=== PATIENT | female | born 1935 | race American Indian/Alaskan Native ===

== ENCOUNTER 2018-06-01 14:46 | Inpatient (IN) | payer MEDICARE ==
--- NOTE | 2018-06-01 16:41 | Emergency Department Report ---
ED N/V/D HPI - General Chief complaint: Nausea/Vomiting/Diarrhea Stated complaint: VOMITING,DIARRHEA, RASH (PELVIC AREA) Time Seen by Provider: 06/01/18 16:20 Source: patient Mode of arrival: Ambulatory Limitations: No Limitations - History of Present Illness Initial comments: Patient is an 82-year-old female that presents to emergency room with complaints of nausea/vomiting/diarrhea and a rash on her buttock and vaginal area. Patient states that the nausea/vomiting and diarrhea are all improving, however 2 days ago a rash popped up on her vagina and buttock. Patient states the rash is painful at a 3 out of 10 and is a burning sensation. Patient states it is spreading from her left buttock to her vaginal region. Patient states she'll have any rash on her right side of her body. Patient states that her nausea/vomiting/diarrhea started 3 days ago and is improving. Patient denies fever and chills. Patient denies chest pain shortness of breath. Patient denies diaphoresis. Patient denies abdominal pain. Patient denies blood in vomitus and in stool. Patient states she has not been to hold anything down for approximately 2 - 3 days MD complaint: nausea, vomiting, diarrhea -: Sudden Description of Vomiting: watery Description of Diarrhea: water Associated Abdominal Pain: No Consistency: other (patient states symptoms of diarrhea, vomiting, nausea or improving) Improves with: rest Worsens with: eating Associated Symptoms: nausea/vomiting, rash. denies: myalgias, chest pain, cough , diaphoresis, fever/chills, headaches, loss of appetite, malaise, shortness of breath, syncope, weakness - Related Data Allergies Allergy/AdvReac Type Severity Reaction Status Date / Time codeine Allergy Unknown Verified 06/01/18 14:50 ED Review of Systems ROS: Stated complaint: VOMITING,DIARRHEA, RASH (PELVIC AREA) Other details as noted in HPI Constitutional: denies: chills, fever Eyes: denies: eye pain, eye discharge, vision change ENT: denies: ear pain, throat pain Respiratory: denies: cough, shortness of breath, wheezing Cardiovascular: denies: chest pain, palpitations Endocrine: no symptoms reported Gastrointestinal: nausea, vomiting, diarrhea. denies: abdominal pain Genitourinary: denies: urgency, dysuria, discharge Musculoskeletal: denies: back pain, joint swelling, arthralgia Skin: rash, lesions Neurological: denies: headache, weakness, paresthesias Psychiatric: denies: anxiety, depression Hematological/Lymphatic: denies: easy bleeding, easy bruising ED Past Medical Hx - Past Medical History Previous Medical History?: Yes Hx Hypertension: Yes Hx CVA: No Hx Heart Attack/AMI: No Hx Congestive Heart Failure: No Hx Diabetes: No Hx Deep Vein Thrombosis: No Additional medical history: hld - Surgical History Past Surgical History?: No - Family History Family history: no significant - Social History Smoking Status: Never Smoker Substance Use Type: None ED Physical Exam - General Limitations: No Limitations General appearance: alert, in no apparent distress - Head Head exam: Present: atraumatic, normocephalic - Eye Eye exam: Present: normal appearance - ENT ENT exam: Present: mucous membranes moist - Neck Neck exam: Present: normal inspection - Respiratory Respiratory exam: Present: normal lung sounds bilaterally. Absent: respiratory distress - Cardiovascular Cardiovascular Exam: Present: regular rate, normal rhythm. Absent: systolic murmur, diastolic murmur, rubs, gallop - GI/Abdominal GI/Abdominal exam: Present: soft, normal bowel sounds. Absent: distended, tenderness, guarding, rebound, rigid - Extremities Exam Extremities exam: Present: normal inspection - Back Exam Back exam: Present: normal inspection - Neurological Exam Neurological exam: Present: alert, oriented X3 - Psychiatric Psychiatric exam: Present: normal affect, normal mood - Skin Skin exam: Present: warm, dry, normal color, rash (vesicular rash on the left buttock extending down into her vaginal region. Intact vesicles as well as some areas of drying vesicular rash follows dermatome. nurse in room during exam. ) ED Course Vital Signs 06/01/18 06/01/18 06/01/18 14:50 16:05 16:11 Temperature 99.4 F Pulse Rate 91 H Respiratory 16 Rate Blood Pressure 136/65 149/69 O2 Sat by Pulse 96 99 96 Oximetry 06/01/18 06/01/18 06/01/18 16:12 16:21 16:23 Temperature 98.6 F Pulse Rate Respiratory 18 Rate Blood Pressure 151/64 O2 Sat by Pulse 97 99 Oximetry 06/01/18 06/01/18 06/01/18 16:30 16:41 16:51 Temperature Pulse Rate Respiratory Rate Blood Pressure 146/65 146/65 146/65 O2 Sat by Pulse 97 96 99 Oximetry 06/01/18 06/01/18 06/01/18 17:01 17:11 17:21 Temperature Pulse Rate Respiratory Rate Blood Pressure 135/91 135/91 144/85 O2 Sat by Pulse 95 98 97 Oximetry 06/01/18 06/01/18 06/01/18 17:25 17:31 17:35 Temperature Pulse Rate Respiratory Rate Blood Pressure 135/91 153/71 153/71 O2 Sat by Pulse 98 97 95 Oximetry 06/01/18 06/01/18 06/01/18 17:41 17:45 17:51 Temperature Pulse Rate Respiratory Rate Blood Pressure 153/71 158/68 158/68 O2 Sat by Pulse 98 98 99 Oximetry 06/01/18 06/01/18 06/01/18 17:55 18:01 18:05 Temperature Pulse Rate Respiratory Rate Blood Pressure 158/68 154/77 154/77 O2 Sat by Pulse 98 99 99 Oximetry 06/01/18 06/01/18 06/01/18 18:11 18:15 18:21 Temperature Pulse Rate Respiratory Rate Blood Pressure 154/77 153/67 153/67 O2 Sat by Pulse 100 98 92 Oximetry 06/01/18 06/01/18 06/01/18 18:25 19:49 19:51 Temperature Pulse Rate Respiratory Rate Blood Pressure 158/68 158/68 158/68 O2 Sat by Pulse 100 45 L 92 Oximetry 06/01/18 20:00 Temperature Pulse Rate Respiratory Rate Blood Pressure 158/68 O2 Sat by Pulse 86 Oximetry - Reevaluation(s) Reevaluation #1: Discussed plan of care with patient. Patient agrees with plan of care and admission. Will start an IV on patient. We'll give patient fluids and consult hospitalist for admission 06/01/18 20:49 - Consultations Consultation #1: Hospitalist consulted for admission. Dr. Nunez to assume care. Discussed case fully with hospitalist. 06/01/18 21:45 ED Medical Decision Making - Lab Data Result diagrams: 06/01/18 18:17 06/01/18 18:17 - Medical Decision Making Patient is an 82-year-old female that presents emergency room with intractable nausea vomiting and diarrhea and rash. Patient's rash found to be shingles. Due to the nausea, vomiting, diarrhea and gastroenteritis patient is severely dehydrated with hyponatremia and hypokalemia. Patient will be admitted to the hospitalist service for further evaluation and treatment. We will give patient fluids down here - Differential Diagnosis gastroenteritis, rash. shingles. dehydration. electrolyt imbalance. Critical care attestation.: If time is entered above; I have spent that time in minutes in the direct care of this critically ill patient, excluding procedure time. ED Disposition Clinical Impression: Rash, Gastroenteritis, Dehydration, Hyponatremia, Hypokalemia Nausea & vomiting Qualifiers: Vomiting type: unspecified Vomiting Intractability: unspecified Qualified Code( s): R11.2 - Nausea with vomiting, unspecified Diarrhea Qualifiers: Diarrhea type: unspecified type Qualified Code(s): R19.7 - Diarrhea, unspecified Shingles Qualifiers: Herpes zoster complications: unspecified herpes zoster complication Qualified Code(s): B02.8 - Zoster with other complications Disposition: OP ADMIT IP TO THIS HOSP Is pt being admited?: Yes Does the pt Need Aspirin: No Condition: Serious Time of Disposition: 21:48
[2018-06-01 17:32] LABS: Bacteria,Urine 1+ /HPF (Negative); Bilirubin,Urine NEG (Negative); Blood,Urine SM (Negative); Color,Urine Yellow (Yellow); Mucus,Urine FEW /HPF; Protein,Urine <15 mg/dL mg/dL (Negative); Urobilinogen,Urine < 2.0 mg/dL (<2.0)
[2018-06-01 18:54] LABS: Hematocrit 41.3 % (30.3-42.9); Hemoglobin 13.6 gm/dl (10.1-14.3); Mean Corpuscular HGB Conc 33 % (30-34); Mean Corpuscular Hemoglobin 28 pg (28-32); Mean Corpuscular Volume 85 fl (79-97); Platelet Count 196 K/mm3 (140-440); Red Blood Count 4.88 M/mm3 (3.65-5.03); Red Cell Distribution Width 14.1 % (13.2-15.2)
[2018-06-01 19:06] LABS: Alanine Aminotransferase 15 units/L (7-56); Albumin 3.8 g/dL (3.9-5); BUN/Creatinine Ratio 28; Blood Urea Nitrogen 14 mg/dL (7-17); Calcium 9.2 mg/dL (8.4-10.2); Hemolysis Index 20
[2018-06-01] MEDS ORDERED: NACL 0.9% 1000 ML 1,000 ML IV ONE (19:32)
[2018-06-01 21:31] LABS: Anisocytosis 1+; Platelet Estimate Consistent w Auto; Total Cells Counted 100
[2018-06-01] MEDS ORDERED: K-DUR PO ONE (22:23)
[2018-06-01] MEDS ORDERED: ZOFRAN IV PRN (22:30)
[2018-06-01] MEDS ORDERED: NACL 0.9% 1000 ML 1,000 ML IV SCH (23:00)
[2018-06-02 02:08] LABS: BUN/Creatinine Ratio 25; Blood Urea Nitrogen 10 mg/dL (7-17); Calcium 8.9 mg/dL (8.4-10.2); Hemolysis Index 21
[2018-06-02] MEDS: ZOVIRAX PO SCH ×3 (06:18→23:26)
--- NOTE | 2018-06-02 06:53 | History and Physical Report ---
CHIEF COMPLAINT: Nausea, vomiting, and diarrhea. HISTORY OF PRESENT ILLNESS: The patient is an 82-year-old female, who has been having nausea, vomiting, and diarrhea going on for about 24 hours and also patient complains of rash in buttocks and vaginal area which occurred about 2 days ago. The patient said the rash is painful and burning in nature and spreading from her buttocks to her vaginal area. There is no history of fever or chills and no history of shortness of breath or chest pain. The patient's nausea, vomiting, and diarrhea has been going on for about 3 days. There is no history of abdominal pain and no history of blood in the stool. PAST MEDICAL HISTORY: Pertinent for hypertension. PAST SURGICAL HISTORY: Unremarkable. FAMILY HISTORY: Noncontributory. SOCIAL HISTORY: The patient does not smoke, does not drink alcohol, and does not use illicit drug. MEDICATIONS: The patient is on amlodipine 10 mg by mouth daily, aspirin 81 mg by mouth daily, simvastatin 20 mg by mouth daily. ALLERGIES: THE PATIENT IS ALLERGIC TO CODEINE. REVIEW OF SYSTEMS: CONSTITUTIONAL: There is no fever, no chills, no diaphoresis. HEENT: There is no headache or sore throat. CARDIOVASCULAR SYSTEM: There is no chest pain or orthopnea. RESPIRATORY SYSTEM: There is no shortness of breath or cough. GASTROINTESTINAL SYSTEM: Nausea, vomiting, and diarrhea present. No abdominal pain. No constipation. NEUROLOGICAL SYSTEM: There is no numbness, no dizziness, no altered mental status. MUSCULOSKELETAL SYSTEM: There is no joint pain or swelling. DERMATOLOGICAL SYSTEM: Skin rash present, no itching, but rashes cause burning sensation. GENITOURINARY SYSTEM: There is no dysuria, hematuria, or flank pain. Rest of system review is normal. PHYSICAL EXAMINATION: GENERAL: At the time of exam, the patient was found to be alert, oriented x 3, and not in acute distress. VITAL SIGNS: Shows temperature of 99.4 degrees Fahrenheit, pulse of 91, respiration 16, blood pressure 136/65, O2 sat of 96% on room air. HEENT: Show pupils to be equal, round, and reactive to light and accommodation. Extraocular muscles are intact. NECK: Neck is supple with no JVD or carotid bruit. CARDIOVASCULAR SYSTEM: Show normal first and second heart sounds with no gallops or murmur. RESPIRATORY SYSTEM: Show good air entry on both sides of the lung with no abnormal breath sounds. GASTROINTESTINAL SYSTEM: Show abdomen to be full, soft, nontender with no organomegaly or rigidity. NEUROLOGICAL: Shows no focal deficit. MUSCULOSKELETAL SYSTEM: Show no joint swelling or tenderness. DERMATOLOGICAL SYSTEM: Show some maculopapular rash in the buttocks and vaginal area per Emergency Room finding. GENITOURINARY SYSTEM: Show no costovertebral angle tenderness. PERTINENT LABORATORY AND IMAGING STUDIES: The patient has CBC done that came back unremarkable except for elevated monocyte count of 12% on CBC differential. The patient's chemistry show low sodium of 130 with low potassium of 3.1 and low chloride of 92.2. The patient's renal function was unremarkable. The rest of chemistry shows low albumin level of 3.8. The patient's urinalysis show elevated urine wbc's of 14 with the large urine leukocyte esterase and elevated urine rbc's of 7 and 1+ bacteria with negative urine nitrite. IMAGING STUDIES: No imaging studies were done at this time. DIAGNOSES: 1. Acute gastroenteritis. 2. Electrolyte imbalance with low sodium, low potassium. 3. Shingles. 4. Urinary tract infection. PLAN: 1. The patient will be admitted to medical floor and will be on IV normal saline at 75 mL an hour. 2. The patient will be on acyclovir 400 mg by mouth every 8 hours for treatment of shingles. 3. The patient will be on IV ceftriaxone 1 gram daily for treatment of UTI. 4. The patient will be on heparin 5000 units subq q.12 hours for DVT prophylaxis. 5. The patient will be on IV Zofran 4 mg every 6 hours p.r.n. for nausea and vomiting. 6. The patient will have a dose of potassium chloride 40 mEq by mouth. 7. The patient will have basic metabolic panel checked in the morning. 8. The patient's home medications will be applied as shown in the medication reconciliation section. JOB# [id number] OCN/NTS
--- NOTE | 2018-06-02 08:55 | Progress Note ---
Assessment and Plan Assessment and plan: Patient is an 82-year-old female that presents to emergency room with complaints of Intractable nausea/vomiting/diarrhea and a rash on her buttock and vaginal area days prior to admission and was found to be in the left buttock extending to the vaginal area and painful with a 3/10 in intensity. Patient was admitted with hypokalemia Perineal herpes zoster infection Acute gastroenteritis probably viral, resolving Acute cystitis Hyponatremia Hypokalemia Plan Continue supportive care and gentle hydration Current antibiotics and antiviral with ceftriaxone and acyclovir Resume medications Monitor electrolytes and replace as needed Pain controlled DVT and GI prophylaxis Isolation precautions and plan of care has been discussed with the patient and she verbalized understanding Anticipated discharge in am 35 minutes additional care provider History Interval history: Patient is seen today for: Herpes zoster Seen and examined at bedside; 24hour events reviewed; nursing staff ; no adverse overnight events reported to me; Denies any chest pain, nausea, vomiting , diarrhea. She reports improvement in although still some pain on the perineal area. No fever noted blood pressure controlled Hospitalist Physical - Physical exam Narrative exam: VITAL SIGNS: Reviewed. GENERAL: The patient appeared well nourished and normally developed. Vital signs as documented. HEAD: No signs of head trauma. EYES: Pupils are equal. Extraocular motions intact. EARS: Hearing grossly intact. MOUTH: Oropharynx is normal. NECK: No adenopathy, no JVD. CHEST: Chest with clear breath sounds bilaterally. No wheezes, rales, or rhonchi. CARDIAC: Regular rate and rhythm. S1 and S2, without murmurs, gallops, or rubs. VASCULAR: No Edema. Peripheral pulses normal and equal in all extremities. ABDOMEN: Soft, without detectable tenderness. No sign of distention. No rebound or guarding, and no masses palpated. Bowel Sounds normal. MUSCULOSKELETAL: Good range of motion of all major joints. Extremities without clubbing, cyanosis or edema. NEUROLOGIC EXAM: Alert and oriented x 3. No focal sensory or strength deficits. Speech normal. Follows commands. PSYCHIATRIC: Mood normal. SKIN: Patient refused examination per ER documentation and confirmed by fluoroscopy today warm, dry, normal color, rash (vesicular rash on the left buttock extending down into her vaginal region. Intact vesicles as well as some areas of drying vesicular rash follows dermatome. nurse in room during exam. ) - Constitutional Vitals: Temp Pulse Resp BP Pulse Ox 99.1 F 83 18 125/49 97 06/02/18 08:22 06/02/18 08:22 06/02/18 08:22 06/02/18 08:22 06/02/18 08:22 Results - Labs CBC & Chem 7: 06/01/18 18:17 06/02/18 08:26 Labs: Laboratory Last Values WBC 5.9 K/mm3 (4.5-11.0) 06/01/18 18:17 RBC 4.88 M/mm3 (3.65-5.03) 06/01/18 18:17 Hgb 13.6 gm/dl (10.1-14.3) 06/01/18 18:17 Hct 41.3 % (30.3-42.9) 06/01/18 18:17 MCV 85 fl (79-97) 06/01/18 18:17 MCH 28 pg (28-32) 06/01/18 18:17 MCHC 33 % (30-34) 06/01/18 18:17 RDW 14.1 % (13.2-15.2) 06/01/18 18:17 Plt Count 196 K/mm3 (140-440) 06/01/18 18:17 Owen % (Auto) Front Office Supervisor 06/01/18 18:17 Add Manual Diff Complete 06/01/18 18:17 Total Counted 100 06/01/18 18:17 Seg Neuts % (Manual) 69.0 % (40.0-70.0) 06/01/18 18:17 Band Neutrophils % 0 % 06/01/18 18:17 Lymphocytes % (Manual) 17.0 % (13.4-35.0) 06/01/18 18:17 Reactive Lymphs % (Man) 0 % 06/01/18 18:17 Monocytes % (Manual) 12.0 % (0.0-7.3) H 06/01/18 18:17 Eosinophils % (Manual) 1.0 % (0.0-4.3) 06/01/18 18:17 Basophils % (Manual) 1.0 % (0.0-1.8) 06/01/18 18:17 Metamyelocytes % 0 % 06/01/18 18:17 Myelocytes % 0 % 06/01/18 18:17 Promyelocytes % 0 % 06/01/18 18:17 Blast Cells % 0 % 06/01/18 18:17 Nucleated RBC % Not Reportable 06/01/18 18:17 Seg Neutrophils # Man 4.1 K/mm3 (1.8-7.7) 06/01/18 18:17 Band Neutrophils # 0.0 K/mm3 06/01/18 18:17 Lymphocytes # (Manual) 1.0 K/mm3 (1.2-5.4) L 06/01/18 18:17 Abs React Lymphs (Man) 0.0 K/mm3 06/01/18 18:17 Monocytes # (Manual) 0.7 K/mm3 (0.0-0.8) 06/01/18 18:17 Eosinophils # (Manual) 0.1 K/mm3 (0.0-0.4) 06/01/18 18:17 Basophils # (Manual) 0.1 K/mm3 (0.0-0.1) 06/01/18 18:17 Metamyelocytes # 0.0 K/mm3 06/01/18 18:17 Myelocytes # 0.0 K/mm3 06/01/18 18:17 Promyelocytes # 0.0 K/mm3 06/01/18 18:17 Blast Cells # 0.0 K/mm3 06/01/18 18:17 WBC Morphology Not Reportable 06/01/18 18:17 Hypersegmented Neuts Not Reportable 06/01/18 18:17 Hyposegmented Neuts Not Reportable 06/01/18 18:17 Hypogranular Neuts Not Reportable 06/01/18 18:17 Smudge Cells Not Reportable 06/01/18 18:17 Toxic Granulation Not Reportable 06/01/18 18:17 Toxic Vacuolation Not Reportable 06/01/18 18:17 Dohle Bodies Not Reportable 06/01/18 18:17 Pelger-Huet Anomaly Not Reportable 06/01/18 18:17 Bill Rods Not Reportable 06/01/18 18:17 Platelet Estimate Consistent w auto 06/01/18 18:17 Clumped Platelets Not Reportable 06/01/18 18:17 Plt Clumps, EDTA Not Reportable 06/01/18 18:17 Large Platelets Not Reportable 06/01/18 18:17 Giant Platelets Not Reportable 06/01/18 18:17 Platelet Satelliting Not Reportable 06/01/18 18:17 Plt Morphology Comment Not Reportable 06/01/18 18:17 RBC Morphology Not Reportable 06/01/18 18:17 Dimorphic RBCs Not Reportable 06/01/18 18:17 Polychromasia Not Reportable 06/01/18 18:17 Hypochromasia Not Reportable 06/01/18 18:17 Poikilocytosis Not Reportable 06/01/18 18:17 Anisocytosis 1+ 06/01/18 18:17 Microcytosis Not Reportable 06/01/18 18:17 Macrocytosis Not Reportable 06/01/18 18:17 Spherocytes Not Reportable 06/01/18 18:17 Pappenheimer Bodies Not Reportable 06/01/18 18:17 Sickle Cells Not Reportable 06/01/18 18:17 Target Cells Not Reportable 06/01/18 18:17 Tear Drop Cells Not Reportable 06/01/18 18:17 Ovalocytes Not Reportable 06/01/18 18:17 Helmet Cells Not Reportable 06/01/18 18:17 [place] Bodies Not Reportable 06/01/18 18:17 [place] Rings Not Reportable 06/01/18 18:17 [place] Cells Not Reportable 06/01/18 18:17 Bite Cells Not Reportable 06/01/18 18:17 Crenated Cell Not Reportable 06/01/18 18:17 Elliptocytes Not Reportable 06/01/18 18:17 Acanthocytes (Spur) Not Reportable 06/01/18 18:17 Rouleaux Not Reportable 06/01/18 18:17 Hemoglobin C Crystals Not Reportable 06/01/18 18:17 Schistocytes Not Reportable 06/01/18 18:17 Malaria parasites Not Reportable 06/01/18 18:17 Oleg Bodies Not Reportable 06/01/18 18:17 Hem Pathologist Commnt No 06/01/18 18:17 Sodium 133 mmol/L (137-145) L 06/01/18 23:56 Potassium 3.3 mmol/L (3.6-5.0) L 06/01/18 23:56 Chloride 95.7 mmol/L (98-107) L 06/01/18 23:56 Carbon Dioxide 21 mmol/L (22-30) L 06/01/18 23:56 Anion Gap 20 mmol/L 06/01/18 23:56 BUN 10 mg/dL (7-17) 06/01/18 23:56 Creatinine 0.4 mg/dL (0.7-1.2) L 06/01/18 23:56 Estimated GFR > 60 ml/min 06/01/18 23:56 BUN/Creatinine Ratio 25 % 06/01/18 23:56 Glucose 78 mg/dL (65-100) 06/01/18 23:56 Calcium 8.9 mg/dL (8.4-10.2) 06/01/18 23:56 Total Bilirubin 0.40 mg/dL (0.1-1.2) 06/01/18 18:17 AST 39 units/L (5-40) 06/01/18 18:17 ALT 15 units/L (7-56) 06/01/18 18:17 Alkaline Phosphatase 77 units/L (35-129) 06/01/18 18:17 Total Protein 7.0 g/dL (6.3-8.2) 06/01/18 18:17 Albumin 3.8 g/dL (3.9-5) L 06/01/18 18:17 Albumin/Globulin Ratio 1.2 % 06/01/18 18:17 Urine Color Yellow (Yellow) 06/01/18 17:13 Urine Turbidity Clear (Clear) 06/01/18 17:13 Urine pH 6.0 (5.0-7.0) 06/01/18 17:13 Ur Specific [place] 1.005 (1.003-1.030) 06/01/18 17:13 Urine Protein <15 mg/dl mg/dL (Negative) 06/01/18 17:13 Urine Glucose (UA) Neg mg/dL (Negative) 06/01/18 17:13 Urine Ketones Neg mg/dL (Negative) 06/01/18 17:13 Urine Blood Sm (Negative) 06/01/18 17:13 Urine Nitrite Neg (Negative) 06/01/18 17:13 Urine Bilirubin Neg (Negative) 06/01/18 17:13 Urine Urobilinogen < 2.0 mg/dL (<2.0) 06/01/18 17:13 Ur Leukocyte Esterase Lg (Negative) 06/01/18 17:13 Urine WBC (Auto) 14.0 /HPF (0.0-6.0) H 06/01/18 17:13 Urine RBC (Auto) 7.0 /HPF (0.0-6.0) 06/01/18 17:13 U Epithel Cells (Auto) 1.0 /HPF (0-13.0) 06/01/18 17:13 Urine Bacteria (Auto) 1+ /HPF (Negative) 06/01/18 17:13 Urine Mucus Few /HPF 06/01/18 17:13
[2018-06-02 09:02] LABS: BUN/Creatinine Ratio 18; Blood Urea Nitrogen 7 mg/dL (7-17); Calcium 8.8 mg/dL (8.4-10.2); Hemolysis Index 7
[2018-06-02] MEDS ORDERED: BABY ASPIRIN PO SCH (10:00)
[2018-06-02] MEDS ORDERED: NON-FORMULARY (Amlodipine 10 MG) PO SCH (10:00)
[2018-06-02] MEDS ORDERED: ROCEPHIN/NS 1 GM/50 ML 1 GM/50 ML BAG IV SCH (10:00)
[2018-06-02] MEDS ORDERED: ASPIR LOW 81 MG PO SCH (10:00)
[2018-06-02] MEDS ORDERED: NON-FORMULARY (Simvastatin 20 MG) PO SCH (10:00)
[2018-06-02] MEDS ORDERED: NORVASC PO SCH (10:00)
[2018-06-02] MEDS: HEPARIN SUB-Q SCH ×2 (11:17→23:28)
[2018-06-02] MEDS ORDERED: PRAVACHOL PO SCH (22:00)
[2018-06-02] MEDS: ACYCLOVIR TP SCH (23:27)
[2018-06-03] MEDS: ACYCLOVIR TP SCH (05:33)
[2018-06-03] MEDS: ZOVIRAX PO SCH (05:33)
--- NOTE | 2018-06-03 07:52 | Discharge Summary ---
Providers - Providers Date of Admission: 06/01/18 22:18 Date of discharge: 06/03/18 Attending physician: WILEY CUBA MD Hospitalization Reason for admission: herpes zoster Condition: Serious Hospital course: Patient is an 82-year-old female that presents to emergency room with complaints of Intractable nausea/vomiting/diarrhea and a rash on her buttock and vaginal area days prior to admission and was found to be in the left buttock extending to the vaginal area and painful with a 3/10 in intensity. Patient was admitted with hypokalemia. Patient reports that she never recieved the zoster vaccine. On arrival the site appears to be in different level of healing. Care of the area and isolation precautions were discussed in detail She is much improved today and will complete the tx as well as follow up with PCP outpatient. Neuropathy as a result of zoster was also discussed with the patient in detail. Electrolytes were replaed. Perineal herpes zoster infection Acute gastroenteritis probably viral, resolving Acute cystitis Hyponatremia Hypokalemia Disposition: TO HOME OR SELFCARE Time spent for discharge: 35 MINS Core Measure Documentation - Palliative Care Palliative Care/ Comfort Measures: Not Applicable - Core Measures Any of the following diagnoses?: none Exam - Physical Exam Narrative exam: VITAL SIGNS: Reviewed. GENERAL: The patient appeared well nourished and normally developed. Vital signs as documented. HEAD: No signs of head trauma. EYES: Pupils are equal. Extraocular motions intact. EARS: Hearing grossly intact. MOUTH: Oropharynx is normal. NECK: No adenopathy, no JVD. CHEST: Chest with clear breath sounds bilaterally. No wheezes, rales, or rhonchi. CARDIAC: Regular rate and rhythm. S1 and S2, without murmurs, gallops, or rubs. VASCULAR: No Edema. Peripheral pulses normal and equal in all extremities. ABDOMEN: Soft, without detectable tenderness. No sign of distention. No rebound or guarding, and no masses palpated. Bowel Sounds normal. MUSCULOSKELETAL: Good range of motion of all major joints. Extremities without clubbing, cyanosis or edema. NEUROLOGIC EXAM: Alert and oriented x 3. No focal sensory or strength deficits. Speech normal. Follows commands. PSYCHIATRIC: Mood normal. SKIN: Patient refused examination per ER documentation and confirmed by fluoroscopy today warm, dry, normal color, rash (vesicular rash on the left buttock extending down into her vaginal region. Intact vesicles as well as some areas of drying vesicular rash follows dermatome. nurse in room during exam. ) - Constitutional Vitals: Temp Pulse Resp BP Pulse Ox 99.9 F H 89 18 150/58 94 06/03/18 02:31 06/03/18 02:31 06/03/18 02:31 06/03/18 02:31 06/03/18 02:31 Plan Activity: advance as tolerated, fall precautions Diet: low cholesterol Special Instructions: record daily BP diary Follow up with: LILLY CORREA MD [Other] - 7 Days Prescriptions: Acyclovir [Zovirax Cap] 400 mg PO Q8HR #18 capsule Capsaicin [Capzasin-Hp] 1 applicatio TP TID #1 cream
[2018-06-03 10:19] VITALS: BP 120/61
== END 2018-06-03 09:30 | disposition home or self-care (01) | DRG 866 ==
LOC: ED 14:46 → 2B-ACE 22:18
PROVIDERS: ADMIT Internal Medicine; ATTEND Internal Medicine
DX: B02.8 Zoster with other complications (principal); N30.00 Acute cystitis without hematuria; E87.1 Hypo-osmolality and hyponatremia; E87.6 Hypokalemia; A08.4 Viral intestinal infection, unspecified; I10 Essential (primary) hypertension; E86.0 Dehydration
CPT/HCPCS: 36415; 80048; 80053; 81001; 85007; 85025; 96360; A9270-GY; J0696; J1644; J7030